=== PATIENT | male | born 1990 | race Caucasian/White ===

== ENCOUNTER 2017-09-30 10:07 | Emergency (ER) | payer MEDICAID ==
[~2017-09-30] VITALS: Ht 165.1 cm; Wt 71.0 kg
[2017-09-30 10:28] VITALS: BP 137/97
== END 2017-09-30 10:48 | disposition home or self-care (01) ==
LOC: ER 10:08
DX: M25.511 Pain in right shoulder (principal); F17.200 Nicotine dependence, unspecified, uncomplicated
CPT/HCPCS: 99283

== ENCOUNTER 2018-04-27 09:26 | Emergency (ER) | payer MEDICAID ==
[~2018-04-27] VITALS: Ht 175.3 cm; Wt 70.5 kg
[2018-04-27 09:36] VITALS: BP 145/69
[2018-04-27] MEDS ORDERED: ketorolac trometh inj. 60 MG/2 ML VIAL IM ONE (10:15)
[2018-04-27] MEDS ORDERED: NAPR-56 PO (10:25)
== END 2018-04-27 10:45 | disposition home or self-care (01) ==
LOC: ER 09:27
DX: M25.511 Pain in right shoulder (principal); R51 Headache; Z98.890 Other specified postprocedural states; V89.2XXA Person injured in unspecified motor-vehicle accident, traffic, initial encounter; Y93.89 Activity, other specified; Y92.89 Other specified places as the place of occurrence of the external cause; Y99.8 Other external cause status
CPT/HCPCS: 96372; 99283; J1885

== ENCOUNTER 2018-04-28 14:49 | Emergency (ER) | payer MEDICAID ==
[~2018-04-28] VITALS: Ht 177.8 cm; Wt 80.9 kg
[~2018-04-28 14:49] MED LIST: NAPR-56 PO
[2018-04-28] MEDS ORDERED: diphenhydrAMINE 50 mg/ml inj IV ONE (16:10)
[2018-04-28] MEDS ORDERED: diazepam 5mg tablet PO ONE (16:10)
[2018-04-28] MEDS ORDERED: proCHLORperazine 10 MG/2 ml inj IV ONE (16:10)
[2018-04-28] MEDS ORDERED: ketorolac trometh. 30mg/ml inj. IV ONE (16:10)
[2018-04-28 18:10] VITALS: BP 117/55
== END 2018-04-28 18:11 | disposition home or self-care (01) ==
LOC: ER 14:49
DX: S16.1XXA Strain of muscle, fascia and tendon at neck level, initial encounter (principal); G43.909 Migraine, unspecified, not intractable, without status migrainosus; F17.200 Nicotine dependence, unspecified, uncomplicated; Z98.890 Other specified postprocedural states; Z79.899 Other long term (current) drug therapy; V49.40XA Driver injured in collision with unspecified motor vehicles in traffic accident, initial encounter; Y93.89 Activity, other specified; Y92.410 Unspecified street and highway as the place of occurrence of the external cause; Y99.8 Other external cause status
CPT/HCPCS: 96374; 96375; 99283; J0780; J1200; J1885

== ENCOUNTER 2018-05-04 18:23 | Emergency (ER) | payer MEDICAID ==
[~2018-05-04] VITALS: Ht 175.3 cm; Wt 68.9 kg
[2018-05-04 18:36] VITALS: BP 146/88
[2018-05-04] MEDS ORDERED: ketorolac trometh. 30mg/ml inj. IM ONE (20:35)
== END 2018-05-04 20:46 | disposition home or self-care (01) ==
LOC: ER 18:24
DX: R51 Headache (principal); M54.9 Dorsalgia, unspecified; F17.200 Nicotine dependence, unspecified, uncomplicated; F12.90 Cannabis use, unspecified, uncomplicated; Z98.890 Other specified postprocedural states
CPT/HCPCS: 96372; 99283; J1885

== ENCOUNTER 2018-10-13 16:45 | Emergency (ER) | payer MEDICAID ==
[~2018-10-13] VITALS: Ht 175.3 cm; Wt 80.9 kg
[2018-10-13 17:41] VITALS: BP 127/87
[2018-10-13] MEDS ORDERED: AMOX-422 PO (19:07)
== END 2018-10-13 19:22 | disposition home or self-care (01) ==
LOC: ER 16:45
DX: L03.113 Cellulitis of right upper limb (principal); F12.90 Cannabis use, unspecified, uncomplicated; Z98.890 Other specified postprocedural states; Z79.899 Other long term (current) drug therapy
CPT/HCPCS: 99283

== ENCOUNTER 2018-10-21 14:20 | Emergency (ER) | payer MEDICAID ==
[~2018-10-21] VITALS: Ht 175.3 cm; Wt 80.9 kg
[~2018-10-21 14:20] MED LIST changes: +AMOX-422 PO; -NAPR-56 PO
[2018-10-21 14:52] VITALS: BP 125/80
[2018-10-21] MEDS ORDERED: ketorolac tromethamine 15mg/ml inj. IM ONE (16:25)
[2018-10-21] MEDS ORDERED: METH-360 PO (17:21)
[2018-10-21] MEDS ORDERED: IBUP-1985 PO (17:21)
== END 2018-10-21 17:42 | disposition home or self-care (01) ==
LOC: ER 14:20
DX: S16.1XXA Strain of muscle, fascia and tendon at neck level, initial encounter (principal); S40.012A Contusion of left shoulder, initial encounter; S60.511A Abrasion of right hand, initial encounter; H53.8 Other visual disturbances; R42 Dizziness and giddiness; R51 Headache; F12.90 Cannabis use, unspecified, uncomplicated; Z98.890 Other specified postprocedural states; Z79.899 Other long term (current) drug therapy; V49.9XXA Car occupant (driver) (passenger) injured in unspecified traffic accident, initial encounter; Y93.89 Activity, other specified; Y92.488 Other paved roadways as the place of occurrence of the external cause; Y99.8 Other external cause status
CPT/HCPCS: 96372; 99283; J1885

== ENCOUNTER 2020-02-18 19:55 | Emergency (ER) | payer MEDICAID ==
[~2020-02-18] VITALS: Ht 177.8 cm; Wt 85.9 kg
[~2020-02-18 19:55] MED LIST changes: -AMOX-422 PO; +IBUP-1985 PO; +METH-360 PO
[2020-02-18 19:58] VITALS: BP 125/92
[2020-02-18] MEDS ORDERED: TETanus/Pertussis (Acell)/Diphther VAC/PF (Tdap-Adult) 0.5ml syringe IMVAC ONE (20:40)
[2020-02-18] MEDS ORDERED: CEPH500C5 PO (20:41)
== END 2020-02-18 21:01 | disposition home or self-care (01) ==
LOC: ER 19:55
DX: S61.011A Laceration without foreign body of right thumb without damage to nail, initial encounter (principal); F12.90 Cannabis use, unspecified, uncomplicated; Z72.89 Other problems related to lifestyle; Z79.2 Long term (current) use of antibiotics; Z79.899 Other long term (current) drug therapy; W45.8XXA Other foreign body or object entering through skin, initial encounter; Y93.89 Activity, other specified; Y92.89 Other specified places as the place of occurrence of the external cause; Y99.8 Other external cause status
CPT/HCPCS: 90471; 90715; 99283

== ENCOUNTER 2020-06-13 15:41 | Emergency (ER) | payer MEDICAID, OTHER ==
[~2020-06-13] VITALS: Ht 177.8 cm; Wt 73.0 kg
[~2020-06-13 15:41] MED LIST changes: +LIDOcaine 1% W/epiNEPHrine 1:100,000 20ml vial ONE
[2020-06-13 16:03] VITALS: BP 148/94
--- NOTE | 2020-06-13 16:48 | NUR ---
Provider Eber at bedside for evaluation
[2020-06-13] MEDS ORDERED: LIDOcaine 1% W/epiNEPHrine 1:200,000 10ml vial IJ ONE (17:00)
== END 2020-06-13 17:40 | disposition home or self-care (01) ==
LOC: ER 15:42
DX: S81.011A Laceration without foreign body, right knee, initial encounter (principal); F12.90 Cannabis use, unspecified, uncomplicated; Z98.890 Other specified postprocedural states; Z72.89 Other problems related to lifestyle; Z79.899 Other long term (current) drug therapy; X58.XXXA Exposure to other specified factors, initial encounter; Y93.89 Activity, other specified; Y92.89 Other specified places as the place of occurrence of the external cause; Y99.8 Other external cause status
CPT/HCPCS: 12002; 99282

== ENCOUNTER 2020-07-25 18:55 | Emergency (ER) | payer MEDICAID, OTHER ==
[~2020-07-25] VITALS: Ht 177.8 cm; Wt 81.8 kg
[~2020-07-25 18:55] MED LIST changes: -LIDOcaine 1% W/epiNEPHrine 1:100,000 20ml vial ONE
[2020-07-25 19:11] VITALS: BP 139/83
[2020-07-25] MEDS ORDERED: ketorolac trometh. 30mg/ml inj. IM ONE (20:35)
[2020-07-25] MEDS ORDERED: CYCL-394 PO (20:36)
== END 2020-07-25 21:37 | disposition home or self-care (01) ==
LOC: ER 18:55
DX: S39.012A Strain of muscle, fascia and tendon of lower back, initial encounter (principal); F12.90 Cannabis use, unspecified, uncomplicated; Z72.89 Other problems related to lifestyle; Z98.890 Other specified postprocedural states; Z79.899 Other long term (current) drug therapy; X58.XXXA Exposure to other specified factors, initial encounter; Y93.89 Activity, other specified; Y92.89 Other specified places as the place of occurrence of the external cause; Y99.8 Other external cause status
CPT/HCPCS: 96372; 99283; J1885

== ENCOUNTER 2023-04-09 20:26 | Emergency (ER) | payer MEDICAID ==
[~2023-04-09] VITALS: Ht 172.7 cm; Wt 75.8 kg
[2023-04-09 20:33] VITALS: RESP 18; TEMP 97.8
[2023-04-09 22:48] VITALS: BP 140/81; PULSE 83; O2SAT 98
== END 2023-04-09 22:51 | disposition home or self-care (01) ==
LOC: ER 20:26
DX: S60.012A Contusion of left thumb without damage to nail, initial encounter (principal); X58.XXXA Exposure to other specified factors, initial encounter; Y93.89 Activity, other specified; Y92.89 Other specified places as the place of occurrence of the external cause; Y99.8 Other external cause status
CPT/HCPCS: 11740; 73130; 99283; 99284

== ENCOUNTER 2024-07-25 12:52 | Emergency (ER) | payer MEDICAID ==
[~2024-07-25] VITALS: Ht 175.3 cm; Wt 81.8 kg
[2024-07-25 13:10] VITALS: TEMP 98
[2024-07-25] MEDS: cyclobenzaprine 10mg tablet PO ONE (13:30)
[2024-07-25] MEDS: HYDROcodone/acetaminophen 5mg/325mg tablet PO ONE (13:30)
[2024-07-25] MEDS: dexamethasone sod phosphate 10mg/ml inj IM STA (14:04)
[2024-07-25] MEDS: ketorolac trometh 30MG/ML vial 30 MG/ML VIAL IM ONE (14:04)
[2024-07-25] MEDS: morphine 4 MG/ML inj SYRINge IV ONE ×2 (15:47→18:24)
[2024-07-25] MEDS: ondansetron/PF 4mg/2ml inj IV ONE (15:47)
[2024-07-25] MEDS ORDERED: IBUP-1984 PO (17:25)
[2024-07-25] MEDS ORDERED: HYDR-3973 PO (17:25)
[2024-07-25 18:40] VITALS: BP 125/69; PULSE 69; RESP 18; O2SAT 98
== END 2024-07-25 18:48 | disposition home or self-care (01) ==
LOC: ER 12:52
DX: M51.27 Other intervertebral disc displacement, lumbosacral region (principal); Z98.890 Other specified postprocedural states
CPT/HCPCS: 72100; 72128; 72131; 96372; 96374; 96375; 96376; 99285; J1100; J1885; J2270; J2405

== ENCOUNTER 2024-09-17 19:12 | Emergency (ER) | payer SELFPAY ==
[~2024-09-17] VITALS: Ht 172.7 cm; Wt 85.0 kg
[2024-09-17 19:26] VITALS: BP 154/117; PULSE 84; RESP 24; TEMP 98; O2SAT 98
== END 2024-09-17 21:31 | disposition left against medical advice (07) ==
LOC: ER 19:13
DX: R21 Rash and other nonspecific skin eruption (principal); Z53.21 Procedure and treatment not carried out due to patient leaving prior to being seen by health care provider

== ENCOUNTER 2025-03-07 16:03 | Emergency (ER) | payer MEDICAID ==
[~2025-03-07] VITALS: Ht 175.3 cm; Wt 74.1 kg
[~2025-03-07 16:03] MED LIST changes: -IBUP-1985 PO; +IBUP600T52 PO
--- NOTE | 2025-03-07 16:49 | Physician Documentation ---
History of Present Illness ~ Chief Complaint: Back Pain Stated Complaint: BACK PAIN Time Seen by MD: 16:37 Primary Medical Doctor: terrence cadena Mode of Arrival: POV, Ambulatory HPI 34-year-old male presenting with severe and worsening lower back pain which is chronic but started to worsen significantly about four days ago after he tripped and fell over. He states that he tripped over his dog and fell onto his lower back. Since that time he has had severe worsening pain. The pain was in his lower back and will radiate down the back of both of his legs. He additionally he states that his right leg is for the most part numb. The left leg experiences tingling. He also reports feeling numbness in his crotch area and also now in his buttocks. He has a history of a disc herniation in his lower back and has been seeing a pain specialist. He reports that he is only on [id number]-[id number] medications for the pain and that they are planning to do a injection however they have not told him when. Also reports that he rolled his left ankle when he fell. Medication Reconciliation Allergies: Coded Allergies: fentanyl (Verified Adverse Reaction, Unknown, agitation, increased blood pressure, 03/07/25) Scheduled Ibuprofen (Ibuprofen), 1 TAB PO Q8H Methocarbamol (Robaxin-750), 1 TAB PO Q12H Past Medical History Past Medical History: Headache Past Surgical History: orthopedic surgeries Alcohol Use: Occasionally Drug Use: marijuana Lives with: Family Lives In: Home Review of Systems All Other Systems at this time: Reviewed and Negative Physical Exam Physical Exam Vital Signs: Temperature: 98.5, Source: Oral, Heart Rate: 113, Respiratory Rate: 16, BP: 151/121, Pulse Oximetry: 100, Weight: 74.100 Oxygen Flow Rate: 0 Physical Exam I have reviewed the triage vitals. CONST: Well developed and well nourished. In severe distress HENT: Head Atraumatic EYES: Pupils are equal, round and reactive to light. Normal conjunctiva NECK: Normal range of motion. Supple. CARDIO: Tachycardic. No murmurs, rubs, or gallops. S1, S2. PULM/CHEST: No respiratory distress. Lungs clear to auscultation. No wheeze ABD: Soft and nontender. Nondistended. Bowel sounds normal. No guarding. : Exam deferred MSK: No edema. No deformity. NEURO: Alert and oriented to person, place and time. Able to move the lower extremities however there is 2/5 strength on the right and 3/5 strength on the left on hip flexion. SKIN: Diaphoretic PSYCH: Extremely anxious, tearful Progress Results/Orders Results/Orders Orders - DANNY ZENG MD Ct Lumbar Spine (03/07/25 19:20) Mri Lumbar Spine (03/07/25 18:30) Electrocardiogram (03/07/25 ) Completed Orders - DANNY ZENG MD Hydromorphone 1 Mg/Ml/Pf (Dilaudid Inj.) (03/07/25 16:45) Normal Saline 1000ml (0.9% Sodium Chlori (03/07/25 16:45) Fentanyl/Pf (Fentanyl 0.05 Mg/Ml Syringe (03/07/25 16:45) Normal Saline 1000ml (0.9% Sodium Chlori (03/07/25 16:45) Cbc/Diff (03/07/25 16:45) BMP (03/07/25 16:45) ESR (03/07/25 16:45) C-Reactive Protein (03/07/25 16:45) Ct Lumbar Spine (03/07/25 19:20) Mri Lumbar Spine (03/07/25 18:30) Electrocardiogram (03/07/25 ) Potassium Cl Sr Tablet (K-Dur Tablet) (03/07/25 17:43) Laboratory Tests Test 03/07/25 16:56 White Blood Count 11.7 H Red Blood Count 4.78 Hemoglobin 15.9 Hematocrit 45.5 Mean Corpuscular Volume 95.1 Mean Corpuscular Hemoglobin 33.3 H Mean Corpuscular Hemoglobin Concent 35.0 Red Cell Distribution Width 14.8 H Platelet Count 352 Mean Platelet Volume 9.3 Neutrophils (%) (Auto) 68.3 Lymphocytes (%) (Auto) 21.4 Monocytes (%) (Auto) 6.9 Eosinophils (%) (Auto) 3.0 Basophils (%) (Auto) 0.4 Neutrophils # (Auto) 8.0 H Lymphocytes # (Auto) 2.5 Monocytes # (Auto) 0.8 Eosinophils # (Auto) 0.4 Basophils # (Auto) 0.0 CBC Comment Erythrocyte Sedimentation Rate 4 Sodium Level 135 Potassium Level 3.2 L Chloride Level 103 Carbon Dioxide Level 21.5 L Anion Gap 11 Blood Urea Nitrogen 11 Creatinine 0.87 Estimated GFR/1.73 m2 > 90 BUN/Creatinine Ratio 12.6 Glucose Level 98 Calcium Level 8.9 C-Reactive Protein 0.19 Albumin 4.2 Chemistry Comments EKG/XRAY/CT/US/VASC/MRI EKG : Additional Comment EKG as interpreted by ED MD indicating normal sinus rhythm at a rate of 94 beats per minute, normal axis, no ischemia Medical Decision Making Additional information obtaine: N/A Findings na Differential Dx:Considerations: DJD, Fracture Addendum Sign-out note: I received sign-out on this patient. He presents with low back pain and tingling numbness or weakness to his legs. Pending CT scan and MRI I personally interpreted the CT scan, and this shows no acute lumbar spine fracture MRI read: Reviewed the radiology report, which shows significant disc herniation with spinal stenosis Re-evaluation: I had a long discussion with the patient regarding the results of his testing. He tells me that he actually has an appointment tomorrow morning at 8:00 a.m. with a it technical specialist. I did discuss the possibility of transfer for spine evaluation, but given that he has an appointment in the morning, that would likely be faster than trying to transfer him any way. He has no evidence of cauda equina or another more dangerous process. He will be discharged with pain medication and a plan to follow up in the morning with a spine surgeon. Sheng Dupree MD Departure Time of Disposition: 20:29 Disposition: 01 HOME / SELF CARE / HOMELESS Impression: Primary Impression: Herniated disc Additional Impression: Lumbar radiculopathy Condition: Improved Discharge Instructions: Herniated Disk Referrals: NO PRIMARY CARE PROVIDER (PCP) Education Educated: Patient Educated regarding: diagnosis, treatment, need for follow up Signature Scribe Signature: na Attestation: DANNY Napier MD Mar 07, 2025 16:49 SHENG DUPREE MD Mar 07, 2025 20:30
--- NOTE | 2025-03-07 17:00 | ELECTROCARDIOGRAPH REPORT ---
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 Kelby Garcia Measurements Intervals Lopez Rate: 94 P: 81 WA: 140 QRS: 87 QRSD: 101 T: 57 QT: 353 QTc: 442 Interpretive Statements Sinus rhythm Probable left atrial enlargement Electronically Signed On 03-09-2025 20:43:[address] Kelby Garcia Please click the below link to view image of tracing.
[2025-03-07] MEDS: normal saline 1000ml 1,000 ML IV ONE ×2 (17:01→17:02)
[2025-03-07] MEDS: fentaNYL/PF 50MCG/1 ML 2ML syringe IV ONE (17:02)
[2025-03-07 17:05] LABS: MEAN PLATELET VOLUME 9.3 FL (7.4-10.4); RED CELL DISTRIBUTION WIDTH 14.8 % (11.5-14.5)
[2025-03-07 17:14] LABS: CREATININE 0.87 MG/DL (0.60-1.10); TOTAL CARBON DIOXIDE 21.5 MMOL/L (24-32); eCRCL 120 ML/MIN; eGFR > 90 ML/MIN
[2025-03-07] MEDS: potassium Cl 20 mEq SR tablet PO STA (19:40)
[2025-03-07 19:42] VITALS: BP 156/121; PULSE 90; RESP 22; O2SAT 100
--- NOTE | 2025-03-07 19:44 | RADIOLOGY REPORT ---
EXAM: MR MRI LUMBAR SPINE CLINICAL HISTORY: severe lower back pain after trauma with neurological deficits COMPARISON: CT CT LUMBAR SPINE on DOS: 03/06/25, CT CT LUMBAR SPINE on DOS: 07/25/24 TECHNIQUE: MRI imaging of the lumbar was performed on a MRI imaging system without intravenous contrast. FINDINGS: 5 [id number]-mon-jrlwzzo lumbar-type vertebrae. Mild straightening of the lumbar lordosis. Vertebral body heights are maintained. No worrisome bone marrow signal. Mild endplate degenerative marrow signal at L5-S1.5 mm retrolisthesis of L5 on S1. The conus terminates at the level of the mid vertebral body of L1 with no abnormal cord signal. T12 L1 through L3-L4: No significant spinal canal or neural foramina stenosis. L4-L5: No significant spinal canal stenosis. Mild right-sided neural foramina stenosis. L5-S1: Minimal posterior disc bulge with central disc extrusion measuring up to 11 mm in AP diameter causing moderate central spinal canal stenosis and contacting the bilateral S1 traversing nerve roots. Moderate to severe right with moderate left-sided neural foramina stenosis. The paraspinal muscles are unremarkable. IMPRESSION: Minimal posterior disc bulge with central disc extrusion measuring up to 11 mm in AP diameter at L5-S1 causing moderate central spinal canal stenosis . There is contact of bilateral S1 traversing nerve roots by the extruded disc at L5-S1. No evidence of acute traumatic fractures.
--- NOTE | 2025-03-07 19:45 | RADIOLOGY REPORT ---
EXAM: CT CT LUMBAR SPINE HISTORY: lower back pain after trauma COMPARISON: CT CT LUMBAR SPINE on DOS: 07/25/24, CT CT THORACIC SPINE on DOS: 07/25/24, DI LUMBAR SPINE LIMITED on DOS: 07/25/24 CTDIvol mGy, DLP mGy*cm. TECHNIQUE: Multiple axial CT images of the spine were obtained using bone algorithm. Axial and coronal reformatting was done. Bone and soft tissue windows were reviewed. FINDINGS: There is normal alignment of the lumbar spine. The lumbar vertebral bodies and T12 are normal in appearance with no evidence of fracture. Paraspinal soft tissues appear unremarkable. T12-L1: No abnormality demonstrated. L1-L2: No abnormality demonstrated. L2-L3: Minimal disc bulge without spinal canal or neural foraminal stenosis. L3-L4: Minimal disc bulge without spinal canal or neural foraminal stenosis. L4-L5: Mild disc bulge with mild neural foraminal narrowing without spinal canal stenosis. L5-S1: Mild disc bulge with mild neural foraminal narrowing without spinal canal stenosis. IMPRESSION: No evidence of fracture in the lumbar spine.
[2025-03-07] MEDS: ketorolac trometh 15mg/ml vial 15 MG/ML ML IV ONE (21:08)
[2025-03-07] MEDS: oxyCODONE IR 5mg (immed. release) tablet PO ONE (21:08)
[2025-03-08 01:29] VITALS: TEMP 98.5
== END 2025-03-08 01:40 | disposition home or self-care (01) ==
LOC: ER 16:04
DX: S99.912A Unspecified injury of left ankle, initial encounter (principal); M54.16 Radiculopathy, lumbar region; M51.26 Other intervertebral disc displacement, lumbar region; G89.29 Other chronic pain; Z88.5 Allergy status to narcotic agent; Z79.899 Other long term (current) drug therapy; W01.0XXA Fall on same level from slipping, tripping and stumbling without subsequent striking against object, initial encounter; Y93.89 Activity, other specified; Y92.89 Other specified places as the place of occurrence of the external cause; Y99.8 Other external cause status
CPT/HCPCS: 36415; 72131; 72148; 80048; 85025; 85651; 86140; 93005; 96361; 96374; 96375; 99285; J1171; J1885; J3010; J7030